=== PATIENT | female | born 1965 | race Caucasian/White ===

== ENCOUNTER 2019-08-03 09:23 | Outpatient (CLI) | payer BC, SELFPAY ==
--- NOTE | ~2019-08-03 | XR_ITS ---
EXAMINATION: XR sinus min 3V DATE: 08/03/2019 09:47 INDICATION: Sinus pressure, mostly on the right. TECHNIQUE: 5 views of the paranasal sinuses were obtained. COMPARISON: None. FINDINGS: There is leftward deviation of the nasal septum. No fracture. The paranasal sinuses are ad ssly clear. IMPRESSION: 1. Leftward deviation of the nasal septum. Reviewed, dictated and finalized at location A.
== END 2019-08-03 09:24 | disposition home or self-care (01) ==
LOC: ANHIMG 09:29
PROVIDERS: PCP Internal Medicine; Visit Provider Internal Medicine
DX: J32.9 Chronic sinusitis, unspecified (principal); J34.2 Deviated nasal septum
CPT/HCPCS: 70220

== ENCOUNTER 2019-11-04 09:26 | Outpatient (CLI) | payer BC, SELFPAY ==
[2019-11-04 09:58] LABS: Alanine Aminotransferase 17 U/L (4-35); Albumin Level 4.6 g/dL (3.5-5.1); Alkaline Phosphatase 87 U/L (38-126); Anion Gap 5 mmol/L (8-16); Aspartate Amino Transferase 32 U/L (14-36); Bilirubin,Total 0.5 mg/dL (0.2-1.3); Blood Urea Nitrogen 17 mg/dL (7-17); Calcium 9.7 mg/dL (8.4-10.2); Carbon Dioxide 30 mmol/L (22-30); Chloride 100 mmol/L (98-107); Cholesterol 230 mg/dL (0-200); Estimated Glomerular Filt Rate > 60; Glucose 91 mg/dL (65-105); HDL Direct 68 mg/dL; Potassium 4.3 mmol/L (3.4-5.0); Sodium 135 mmol/L (137-145); Triglycerides 70 mg/dL (<150)
[2019-11-04 10:09] LABS: LDL Cholesterol Direct 132 mg/dL
[2019-11-04 10:26] LABS: Free T4 Free Thyroxine 0.95 ng/mL (0.78-2.19)
[2019-11-13 08:13] LABS: Insulin Level Total 2.8 uIU/mL (<=19.6)
== END 2019-11-04 09:27 | disposition home or self-care (01) ==
LOC: ANHLAB 09:27
PROVIDERS: PCP Internal Medicine; Visit Provider Internal Medicine
DX: Z00.00 Encounter for general adult medical examination without abnormal findings (principal); Z79.899 Other long term (current) drug therapy
CPT/HCPCS: 36415; 80053; 80061; 83036; 83525; 84439; 84443

== ENCOUNTER 2019-12-13 15:58 | Outpatient (CLI) | payer BC, SELFPAY ==
--- NOTE | ~2019-12-13 | MM_ITS ---
EXAMINATION: MM screening stephanie BI w ricarda HISTORY: Screening mammogram, family history of breast cancer in her sister. TECHNIQUE: Craniocaudal and mediolateral oblique 3-D tomosynthesis images were obtained and synthetic 2-D images were generated. CAD analysis was submitted and interpreted. COMPARISON: 05/12/2017, 05/05/2017, 07/31/2014 BREAST PARENCHYMAL COMPOSITION: The breasts are heterogeneously dense, which may obscure small masses . FINDINGS: Scattered benign-appearing calcifications are present. There is no evidence of suspicious m ass, calcification, or architectural distortion to suggest malignancy in either breast. There has bee n no suspicious interval change. IMPRESSION: 1. No mammographic evidence of malignancy. 2. Recommend routine screening mammography in one year. BI-RADS Category 2: Benign finding(s). Reviewed, dictated and finalized at location A.
== END 2019-12-13 15:59 | disposition home or self-care (01) ==
PROVIDERS: PCP Internal Medicine; Visit Provider Internal Medicine
DX: Z12.31 Encounter for screening mammogram for malignant neoplasm of breast (principal)
CPT/HCPCS: 77063; 77067

== ENCOUNTER 2020-04-19 10:27 | Outpatient (CLI) | payer OTHER, SELFPAY ==
[2020-04-19 11:00] LABS: Anion Gap 4 mmol/L (8-16); Blood Urea Nitrogen 19 mg/dL (7-17); Calcium 9.3 mg/dL (8.4-10.2); Carbon Dioxide 34 mmol/L (22-30); Chloride 101 mmol/L (98-107); Estimated Glomerular Filt Rate > 60; Glucose 90 mg/dL (65-105); Potassium 4.2 mmol/L (3.4-5.0); Sodium 139 mmol/L (137-145)
== END 2020-04-19 10:28 | disposition home or self-care (01) ==
PROVIDERS: Anesthesiology; PCP Internal Medicine; Visit Provider Surgery Plastic and Reconstructive Surgery
DX: R60.9 Edema, unspecified (principal); Z01.818 Encounter for other preprocedural examination
CPT/HCPCS: 36415; 80048

== ENCOUNTER → 2020-04-21 00:29 | Outpatient (CLI) | payer OTHER, SELFPAY ==
[2020-04-21 19:48] LABS: SARS-CoV-2 RNA PCR Negative
== END ==
PROVIDERS: PCP Internal Medicine; Visit Provider Surgery Plastic and Reconstructive Surgery
DX: Z01.812 Encounter for preprocedural laboratory examination (principal); Z20.822 Contact with and (suspected) exposure to COVID-19
CPT/HCPCS: C9803; U0003; U0005

== ENCOUNTER 2020-04-24 00:26 | Day surgery (SDC) | payer OTHER, SELFPAY ==
[2020-04-18 15:44] VITALS: BMI 24.7
[2020-04-24] VITALS (11 sets, daily range): BP systolic 95–128; BP diastolic 60–83; PULSE 57–86; RESP 10–20; TEMP 36.1–36.8; O2SAT 97–100
--- NOTE | 2020-04-24 06:47 | WPDHPUPDATE1 ---
History and Physical Update Update Date/Time: 04/24/20 06:47 History and Physical has been reviewed, including an updated exam of the patient. There are NO changes in the patient's condition. Risks, benefits, and alternatives have been discussed and questions answered. Patient agrees to proceed with procedure.
--- NOTE | 2020-04-24 06:52 | PM.PROC ---
Procedure Note - Detailed Date of procedure: 04/24/20 Pre-op diagnosis: Skin Laxity Localized Adiposity Post-op diagnosis: same Procedure performed: 1. Progressive Tension Abdominoplasty 2. Suction Lipectomy Abdomen Description of procedure: She is here today for abdominoplasty / suction lipectomy. Previously and again today the risks, benefits, alternatives were discussed in extensive detail. I wanted her to be very realistic about the risks involved as well as expectations. We discussed aftercare and what to monitor for. I was very upfront about the risks of wound breakdown leading to loss of skin, open wounds, and need for additional procedures with permanent abdominal deformity. We discussed DVT/PE risks and management. Made sure answered all of her questions to her satisfaction today and consent was obtained. She was marked in the preoperative holding area with their verification. The patient was taken to the operating room placed supine on the operating table. Anesthesia was provided by anesthesiology. A lucas catheter was started. She was prepped and draped in a standard sterile fashion. A surgical time-out was taken. I placed the patient in a flexed position to verify the upper and lower markings would reach. I then placed her supine. A thorough abdominal examination was completed. Stab incisions were made and used tumescent solution. Suction lipectomy was completed of the abdomen based on S.A.F.E. technique using a 4mm basket cannula in multiple planes / passes to final results based on preoperative planning and rolling pinch test. She was turned in the lateral decubitus position on each side to verify contour / complete suction. A 10 blade was used to make the upper incision. I continued dissection down to the level of fascia. Elevated just what was necessary for repair of the diastasis and discontinuous undermining otherwise. I then again flexed the bed to verify the upper skin flap would reach the lower markings without tension. Once verified I placed her supine once again and a 10 blade used to make the lower incision. I elevated up to level the umbilicus and left the umbilicus intact on a well-vascularized stalk. The intervening tissue was removed. A 2 mm blunt cannula and Exparel which was mixed 20 cc in 100 cc for a total volume of 120 cc I injected deep to the fascia bilaterally as well as along the incision lines. I plicated the diastasis recti using 0 PDO stratafix barbed suture. This was in 2 separate layers using 2 separate sutures as well. I repaired around the umbilicus leaving plenty of room for well-vascularized stalk of the umbilicus with 2-0 PDS. The patient was flexed and starting from superior to inferior began plication using 2-0 Vicryl to obliterate all space in a standard progressive tension fashion. At the umbilicus I marked out the location of the skin and inset this with 3-0 Monocryl and 4-0 nylon. I continued the remainder of the plication using 2-0 Vicryl until I reached my lower planned scar line. I trimmed any excess skin of the upper flap making sure this was a tension-free closure. I then approximated using a 3 point suture with 2-0 Vicryl followed by 3-0 stratafix ,running subcuticular 4-0 Monocryl, and tissue glue. Fluffs and an abdominal binder were placed. The patient was transferred to the bed in a flexed position. Awoken and taken to the PACU without difficulty. All instrument and sponge counts were correct at the end of the case. Anesthesia: GETA Surgeon: Ha Cary MD Estimated blood loss (mL): 30 Drains: No Packing: No Pathology: none sent Complications: No immediate complications Condition: stable Disposition: PACU Findings: Suction volume 800cc. Tissue removed 1585 grams
[2020-04-24 07:18] LABS: Urine Cotinine NEGATIVE
[2020-04-24] MEDS: LACTATED RINGERS 1,000 ML 30 ML IV CONT ×2 (07:31→12:30)
--- NOTE | 2020-04-24 08:17 | WPDANESEPPF ---
Anes - Initial Pre Proc Eval Procedure: Operation Date: 04/24/20 08:30 Proposed Procedures p Abdominoplasty - Ha Cary MD s Liposuction Abdomen - Ha Cary MD Date/Time: 04/24/20 08:17 Surgeon: Ha Cary MD Pre Op Diagnosis: Skin Laxity Patient Data Age: 54 Gender: F Height: 5 ft 2 in Weight: 59.02 kg Last Vital Signs Temp 97.3 F L 04/24/20 07:55 Pulse 86 04/24/20 07:55 Resp 20 04/24/20 07:55 BP 116/71 04/24/20 07:55 Pulse Ox 100 04/24/20 07:55 Allergies Allergy/AdvReac Type Severity Reaction Status Date / Time No Known Allergies Allergy Mild Verified 04/24/20 07:54 Home Medications Medication Instructions Recorded Confirmed Type triamterene 75 1 tablet PO DAILY #90 tablet 10/20/19 04/24/20 Rx mg-hydrochlorothiazide 50 mg tablet Laboratory Tests 04/24/20 06:56 Cotinine Negative Patient hx anesthesia problems: none Family hx anesthesia problems: none PMFSH Past Medical History Medical History Anxiety BMI 26.0-26.9,adult Cellulitis of ankle Depression DJD (degenerative joint disease) Facial rash Follow up Follow up Heart palpitations Hx of abnormal mammogram Hyperlipidemia Hypoglycemia 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 Sinus pain Vertigo Surgical History Surgical History History of adenoidectomy History of cholecystectomy 11/04/2017 History of tonsillectomy Hx of section 1994 Family History Family History Other Diabetes mellitus Hypertension Social History Social History Smoking status: Never smoker Alcohol intake: current Substance use: never Anes - Eval Final PreProcedure Day of Procedure 04/24/20 08:17 Patient weight: normal Heart: regular rate and rhythm Lungs: clear to auscultation Airway: Mallampati scale class II Neurological: alert and oriented Last oral intake: >/= 8 hours ASA classification: II Emergent: no Anesthetic plan: proceed Anesthesia type and monitoring: general ETT and standard monitoring Informed Consent: The patient's anesthetic plan and its attendant risks and benefits were discussed with the patient/family/POA. Questions were solicited and answers provided to the satisfaction of the patient/family/POA.
[2020-04-24] MEDS: SCOPOLAMINE 1.5 MG PATCH TRANSDERM (08:30)
[2020-04-24] MEDS: ceFAZolin 2 GM/D5W 50 ML 2 GM/50 ML BAG IVPB (08:37)
[2020-04-24] MEDS: LACTATED RINGERS 1,000 ML 125 ML IV CONT (14:37)
[2020-04-24] MEDS: oxyCODONE/ACETAMINOPHEN (*CRX) 5-325 MG TABLET PO ×2 (16:13→22:53)
[2020-04-24] MEDS: carisoprodoL (*CRX) 350 MG TABLET PO (18:20)
[2020-04-24] MEDS: ENOXAPARIN 40 MG/0.4 ML SYRINGE SUB-Q (19:25)
--- NOTE | 2020-04-24 19:40 | PC.NURSE ---
1402 Pt admitted to room 283 from PACU after surgery today with Dr. Cary. Pt awake and alert; VSS and assessment WNL. Pt's present; couple oriented to room, staffing and procedures. Pt appears to be in stable condition.
--- NOTE | 2020-04-24 20:01 | PC.NURSE ---
1715 Pt has puncture wound on R and L sides lower abdomen. site on her R when binder lifted had moderate amount very bloody drainage flowing freely; stopped when pressure applied, and when pressure lifted flowed freely; gauze pressure dressing applied with binder covering. site on pt's left side had minimal drainage.
[2020-04-24] MEDS: DOCUSATE SODIUM 100 MG CAPSULE PO (22:53)
--- NOTE | 2020-04-24 23:00 | PC.NURSE ---
Druidly would not let RN chart at this time - gave error stating there was something that needed to be filed still, and would not let me open these interventions. IV line - WNL Lane - out at 2300 SCD/CONNIE - continued. All systems WNL except: - GI: no flatuence - Integ: incision on abdomen - serosanguious on sides where wounds had been irrgated. VS: BP - 102/68 Pulse - 71 temp - 98.4
[2020-04-25] MEDS: carisoprodoL (*CRX) 350 MG TABLET PO ×2 (00:45→05:30)
[2020-04-25] MEDS: oxyCODONE/ACETAMINOPHEN (*CRX) 5-325 MG TABLET PO (05:29)
[2020-04-25 05:40] VITALS: BP 102/68; PULSE 71; RESP 17; TEMP 36.7
--- NOTE | 2020-04-25 07:32 | WPDPN ---
Progress Note: A&P Assessment and Plan (1) Encounter for cosmetic surgery: Code(s): Z41.1 - Encounter for cosmetic surgery Status: Acute Assessment and Plan: She is doing very well after progressive tension abdominoplasty and suction lipectomy of the abdomen. Will discharge home. Follow up in 1 week. Today waited 20 minutes conversation with her and her about the care. What monitor for. Answered all of their questions. Review of Systems Review of Systems: All systems reviewed & are unremarkable except as noted in HPI and below Exam Narrative: Exam Narrative: Abdomen is healing well. There is no signs of infection. No hematoma. No seroma. Good color and capillary refill. No calf tenderness. Negative Homans. Objective Data Vital Signs Vital Signs: Vital Signs - 24 hr 04/24/20 07:55 04/24/20 12:32 04/24/20 12:45 Temperature 36.3 C L 36.2 C L Pulse Rate 86 74 66 Respiratory Rate 20 10 L 11 L Blood Pressure 116/71 128/76 116/83 Pulse Oximetry 100 100 100 04/24/20 13:00 04/24/20 13:15 04/24/20 13:30 Temperature Pulse Rate 60 60 64 Respiratory Rate 10 L 10 L 10 L Blood Pressure 126/79 114/66 121/71 Pulse Oximetry 100 97 99 04/24/20 13:45 04/24/20 14:00 04/24/20 16:10 Temperature 36.4 C 36.1 C L Pulse Rate 57 L 58 L 74 Respiratory Rate 12 18 16 Blood Pressure 119/68 115/73 96/61 L Pulse Oximetry 98 99 04/24/20 19:00 04/24/20 23:00 04/25/20 05:40 Temperature 36.8 C 36.7 C 36.7 C Pulse Rate 65 68 71 Respiratory Rate 15 15 17 Blood Pressure 95/60 L 109/70 102/68 Pulse Oximetry Intake/Output Intake/Output: Intake & Output 04/22/20 04/23/20 04/24/20 04/25/20 23:59 23:59 23:59 23:59 Intake Total 1200 700 Output Total 400 1400 Balance 800 -700 Meds/Results Medications: Active Medications Generic Name Dose Route Start Last Admin Trade Name Freq PRN Reason Stop Dose Admin Carisoprodol 350 mg 04/24/20 18:00 04/25/20 05:30 Carisoprodol (*Crx) 350 Mg Tablet PO 350 mg Q6HR JIGAR Administration Docusate Sodium 100 mg 04/24/20 21:00 04/24/20 22:53 Docusate Sodium 100 Mg Capsule PO 100 mg Q12HR JIGAR Administration Enoxaparin Sodium 40 mg 04/24/20 19:00 04/24/20 19:25 Enoxaparin 40 Mg/0.4 Ml Syringe SUB-Q 40 mg Q24H JIGAR Administration Lactated Ringer's 1,000 mls @ 125 mls/hr 04/24/20 12:35 04/24/20 14:37 Lr - Lactated Ringers Iv IV CONT 125 mls/hr .Q8H JIGAR Administration Morphine Sulfate 2 mg 04/24/20 12:35 Morphine Sulfate (*Crx) 2 Mg/Ml Inj IV PUSH Q2H PRN Pain Ondansetron HCl 4 mg 04/24/20 12:35 Ondansetron Inj 4 Mg/2 Ml Vial IV PUSH Q6H PRN Nausea Oxycodone/Acetaminophen 1 - 2 tablet 04/24/20 12:35 04/25/20 05:29 Oxycodone/Acetaminophen (*Crx) 5-325 Mg Tablet PO 1 tablet Q6H PRN Administration Pain Triamterene/Hydrochlorothiazide 2 tab 04/25/20 09:00 Triamterene 37.5 Mg/Hctz 25 Mg (Maxzide) Tablet PO 05/25/20 09:01 [facility]ILY [facility] Subjective Date/time seen: 04/25/20 07:32 She states she is doing well. No complaints. No fevers or chills. No nausea vomiting. No shortness of breath. No chest pain. She has ambulated. Tolerating p.o..
--- NOTE | 2020-04-25 07:34 | WPDANESPN ---
Anes - Prog Note Post-Op Date/Time: 04/25/20 07:34 Cardiovascular status: normal Respiratory status: normal Airway patency: baseline Mental status: baseline Post-Op hydration status: normal Vital Signs: Last Vital Signs Temp 36.7 C 04/25/20 05:40 Pulse 71 04/25/20 05:40 Resp 17 04/25/20 05:40 BP 102/68 04/25/20 05:40 Pulse Ox 99 04/24/20 14:00 Pain Score (VAS): 03/28 I/O: Intake & Output 04/24/20 04/24/20 04/25/20 15:59 23:59 07:59 Intake Total 600 600 700 Output Total 799 259 1826 Balance 400 400 -700 Post-procedural complaints: none Patient Feedback: Patient satisfied with anesthetic care.
--- NOTE | 2020-04-25 07:38 | P.DS_ITS ---
DS: Admitting Diagnosis Admitting Diagnosis Admitting Diagnosis: Skin laxity and localized adiposity DS: Discharge Diagnosis Discharge Diagnosis (1) Encounter for cosmetic surgery: Code(s): Z41.1 - Encounter for cosmetic surgery Status: Acute DS: Summary Hospital Course Hospital Course: Patient underwent progressive tension abdominoplasty and suction lipectomy uneventfully. Postoperatively she has done very well. Will discharge home. See back in 1 week. Time Spent with Patient Time attestation: Total time spent providing and/or coordinating discharge services: 20 minutes Exam Narrative: Exam Narrative: Abdomen is healing well. There is no signs of infection. No hematoma. No seroma. Good color and capillary refill. No calf tenderness. Negative Homans. Discharge Plan Discharge Patient Disposition: Home, Self-Care Discharge Instructions: POST OPERATIVE DISCHARGE INSTRUCTIONS HA CARY M.D. [facility] [address] [place] [address] * No driving for 24 hours after anesthesia and while you are taking pain medication. * Take all prescribed medication as directed * Diet as tolerated. * No lifting or activity that raises blood pressure for 48 hours. * Regular walking / ambulation. * No showering until directed to. Once you shower do not take pain medication before showering as the combination of medication and heat may cause you to feel dizzy or pass out. * No pools or tubs for 2 weeks. * Call with any questions or concerns. * Dressing Care: May shower. Continue abdominal binder 23 hours per day. If you have any questions or concerns, please call the office . If it is after hours you will be directed to the financial operations clerk exchange. Shortness of breath, chest pain, or other medical emergency dial 911 / proceed to the Emergency Room. Stand Alone Forms: General Discharge Instructions Follow-up/Referrals: Ha Cary MD [Physician] - 1 Week Discharge Medications: Continued triamterene-hydrochlorothiazid 75-50 mg tablet 1 tablet PO DAILY Qty: 90 RF: 3
[2020-04-25 08:25] VITALS: BP 92/53; PULSE 90; RESP 18; TEMP 37.4; O2SAT 96
== END 2020-04-25 10:10 | disposition home or self-care (01) ==
LOC: ANHSURGERY 06:51 → ANHOB2 14:11
PROVIDERS: PCP Internal Medicine; Visit Provider Surgery Plastic and Reconstructive Surgery
PROC: (CPT 15830; principal; 2020-04-24 08:30)
PROC: (CPT 15877; 2020-04-24 08:30)
DX: Z41.1 Encounter for cosmetic surgery (principal); L57.4 Cutis laxa senilis; E65 Localized adiposity; Z79.899 Other long term (current) drug therapy
CPT/HCPCS: 15830; 15847; 15877; 80307; 99199; A9270; C9290; J0171; J0330; J0690; J1100; J1170; J1650; J2250; J2405; J2704; J3010; J7120

== ENCOUNTER → 2020-08-31 06:58 | Outpatient (CLI) | payer BC, SELFPAY ==
[2020-08-31 19:11] LABS: SARS-CoV-2 RNA PCR Negative
== END ==
PROVIDERS: PCP Internal Medicine; Visit Provider Internal Medicine
DX: R68.89 Other general symptoms and signs (principal); Z20.822 Contact with and (suspected) exposure to COVID-19
CPT/HCPCS: C9803; U0003; U0005

== ENCOUNTER 2020-12-19 14:49 | Outpatient (CLI) | payer BC, SELFPAY ==
--- NOTE | ~2020-12-19 | XR_ITS ---
XR lumbar spine 2-3V DATE: 12/19/2020 15:10 INDICATION: Low back pain and bilateral hip pain. No injury. TECHNIQUE: AP, lateral and coned lateral lumbosacral views COMPARISON: None FINDINGS: Prominent spurring at T10-11. There is mild degenerative spurring of the lumbar spine, primarily at L3-4. Lumbar and lumbosacral in terspaces are well preserved. No fracture or bone destruction or spondylolisthesis. The lumbar pedicles are intact. The sacroiliac joints appear normal. IMPRESSION: Minimal spurring of the lumbar spine Reviewed, dictated and finalized at location A.
--- NOTE | ~2020-12-19 | XR_ITS ---
XR hip BI 2V w AP pelvis DATE: 12/19/2020 15:10 INDICATION: Bilateral hip pain TECHNIQUE: AP pelvis. AP and lateral views of each hip. COMPARISON: None FINDINGS: No pelvic fracture or bone destruction. The pubic symphysis and sacroiliac joints are intac t. No fracture, dislocation, avascular necrosis or bone destruction of either hip. Hip joint spaces a re symmetric and relatively preserved. IMPRESSION: No significant abnormality Reviewed, dictated and finalized at location A. IMPRESSION: No significant abnormality
== END 2020-12-19 14:50 | disposition home or self-care (01) ==
PROVIDERS: PCP Internal Medicine; Visit Provider Internal Medicine
DX: M25.551 Pain in right hip (principal); M25.552 Pain in left hip; M54.9 Dorsalgia, unspecified
CPT/HCPCS: 72100; 73521

== ENCOUNTER → 2021-04-02 09:25 | Outpatient (CLI) | payer BC, SELFPAY ==
[2021-04-02 16:44] LABS: SARS-CoV-2 RNA PCR Positive
== END ==
PROVIDERS: PCP Internal Medicine; Visit Provider Internal Medicine
DX: U07.1 COVID-19 (principal)
CPT/HCPCS: C9803; U0003; U0005

== ENCOUNTER 2021-04-08 08:30 | Outpatient (CLI) | payer BC, SELFPAY ==
--- NOTE | ~2021-04-08 | CT_ITS ---
EXAMINATION: CTA chest PE protocol EXAM DATE: 04/08/2021 09:51 INDICATION: Chest pain, shortness of breath. Personal history of COVID-19 TECHNIQUE: Spiral CTA of the chest (pulmonary arteries) was performed with 100 cc Omnipaque 350 intr avenous contrast injection. Images were acquired during the pulmonary arterial phase. Coronal maxi mum intensity projection 3D-reconstructions were created by the technologist on dedicated workstation . Axial, coronal and sagittal reformatted images were reviewed. The dose-length product (DLP) for t his examination was 177.28 mGy-cm. The exposure was tailored according to patient size (auto mA exp osure control), and iterative reconstruction (ASIR) was used as additional dose reduction technique. There is no prior study for comparison. FINDINGS: Pulmonary arteries are well opacified and without intraluminal filling defects. No thora cic aortic dissection. The lungs are clear. There are no pleural or pericardial effusions. Trach eobronchial tree is patent. There is no mediastinal, hilar or axillary lymphadenopathy. There is no pneumothorax. Heart normal in size. No evidence of coronary arterial calcification. Upper abd omen is unremarkable. There is thoracic spondylosis without osteoblastic or osteolytic lesions iden tified. IMPRESSION: 1. No pulmonary emboli or acute cardiopulmonary findings. Reviewed, dictated and finalized at location A. T SPA DESK
[2021-04-08 09:21] LABS: INR 1.1; Prothrombin Time 13.9 Seconds (11.1-14.7)
[2021-04-08 09:35] LABS: D Dimer 0.27 ug/mL (<0.48)
== END 2021-04-08 08:31 | disposition home or self-care (01) ==
PROVIDERS: PCP Internal Medicine; Visit Provider Internal Medicine
DX: R07.89 Other chest pain (principal); R06.02 Shortness of breath; Z86.16 Personal history of COVID-19
CPT/HCPCS: 36415; 71275; 85380; 85610; Q9967

== ENCOUNTER 2021-05-22 14:53 | Outpatient (CLI) | payer BC, SELFPAY ==
--- NOTE | ~2021-05-22 | MM_ITS ---
EXAMINATION: MM screening stephanie BI w ricarda HISTORY: Screening TECHNIQUE: Craniocaudal and mediolateral oblique 3-D tomosynthesis images were obtained and synthetic 2-D images were generated. CAD analysis was submitted and interpreted. COMPARISON: Comparison to multiple prior studies sequentially, with oldest reviewed study dated 07/31. BREAST PARENCHYMAL COMPOSITION: The breasts are heterogeneously dense, which may obscure small masses . FINDINGS: There is no evidence of suspicious mass, calcification, or architectural distortion to sugg est malignancy in either breast. There has been no suspicious interval change. IMPRESSION: 1. No mammographic evidence of malignancy. 2. Recommend routine screening mammography in one year. BI-RADS Category 1: Negative. Reviewed, dictated and finalized at location A.
== END 2021-05-22 14:54 | disposition home or self-care (01) ==
LOC: ANHIMG 14:55
PROVIDERS: PCP Internal Medicine; Visit Provider Obstetrics & Gynecology
DX: Z12.31 Encounter for screening mammogram for malignant neoplasm of breast (principal)
CPT/HCPCS: 77063; 77067

== ENCOUNTER 2021-06-26 09:30 | Outpatient (CLI) | payer BC, SELFPAY ==
--- NOTE | ~2021-06-26 | CT_ITS ---
EXAMINATION: CT brain wo/w con DATE: 06/26/2021 10:03 INDICATION: Unspecified visual disturbance TECHNIQUE: Computed tomography (CT) of the head was performed without and subsequently with 100 CC Om nipaque 300 intravenous contrast. The mA was adjusted according to patient size. Iterative reconstruc tion technique was employed. Exam dose: 1210.67 mGy-cm total exam DLP. COMPARISON: None FINDINGS: No intracranial mass lesion or hemorrhage or cerebrovascular accident is detected. No midli ne shift or mass effect. Normal ventricular size. No subdural or epidural hematoma is detected. The mastoid air cells and included paranasal sinuses are normally developed and aerated. No fracture or bone destruction of the cranial vault. IMPRESSION: No significant abnormality Reviewed, dictated and finalized at Location A. Reviewed, dictated and finalized at location B. IMPRESSION: No significant abnormality
== END 2021-06-26 09:31 | disposition home or self-care (01) ==
PROVIDERS: PCP Internal Medicine; Visit Provider Internal Medicine
DX: H53.9 Unspecified visual disturbance (principal)
CPT/HCPCS: 70470; Q9967

== ENCOUNTER 2021-07-11 18:40 | Emergency (ER) | payer BC, SELFPAY ==
--- NOTE | ~2021-07-11 | XR_ITS ---
XR wrist LT 2V 07/11/2021 19:03 Indication: Left wrist pain with fall Procedure: 2 views left wrist Comparison: No prior studies for comparison. Findings: There is a nondisplaced fracture of the distal radial metaphysis with possible intra-articu lar extension. There are degenerative changes of the triscaphe joint. Normal mineralization. No focal soft tissue abnormality. No foreign bodies. Impression: 1: Nondisplaced fracture of the distal radial metaphysis with possible intra-articular extension. Reviewed, dictated and finalized at location A. Impression: 1: Nondisplaced fracture of the distal radial metaphysis with possible intra-ar ticular extension.
[2021-07-11 18:48] VITALS: BP 138/75; PULSE 64; RESP 18; TEMP 36.1; O2SAT 98
[2021-07-11] MEDS: HYDROcodone/acetaminophen (*CRX) 5-325 MG TABLET 1 TAB PO (19:41)
--- NOTE | 2021-07-11 19:42 | ED.GENADULT ---
HPI - General Adult General Chief complaint: Extremity Injury, Upper Stated complaint: fell off ladder, left wrist pain Time Seen by Provider: 07/11/21 19:20 History of Present Illness HPI narrative: Patient is a 55-year-old female who presents ER with left wrist pain. Patient was on a ladder 2 steps up when she fell off sideways catching herself with her left arm. She has pain at the wrist radiating into the forearm. No numbness or tingling. She did not strike her head or lose consciousness. Denies additional injury. Related Data Home Medications Medication Instructions Recorded Confirmed loratadine 5 mg-pseudoephedrine ER 1 tablet PO Q12H 04/08/21 06/27/21 120 mg tablet,extended release,12hr (Claritin-D 12 Hour) Allergies Allergy/AdvReac Type Severity Reaction Status Date / Time No Known Allergies Allergy Mild Verified 07/11/21 19:42 Review of Systems Review of Systems: All systems reviewed & are unremarkable except as noted in HPI and below Constitutional: Constitutional: Denies chills and Denies fever(s) Musculoskeletal: Musculoskeletal: Reports arthralgias and Reports joint swelling Neurologic: Denies syncope, Denies focal weakness and Denies numbness PMFSH Past Medical History Medical History (Updated 07/11/21 @ 19:52 by Loy Guillory MD) Abnormal mammogram Anxiety BMI 26.0-26.9,adult Breast cancer screening Cellulitis of ankle Cellulitis of ankle Cervical radicular pain Chest tightness Colon cancer screening Depression DJD (degenerative joint disease) Edema of extremities Exposure to COVID-19 virus Facial rash FHx: breast cancer Follow up Follow up Heart palpitations Hx of abnormal mammogram Hyperlipidemia Hypoglycemia Laceration with foreign body, right ankle, initial encounter Left ear pain 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 HEAD: Normocephalic, atraumatic. HEART: Regular rate and rhythm. Normal peripheral pulses. EXTREMITIES: Swelling over the left wrist at the anatomic snuffbox and tender around the wrist as well. No tenderness or deformity at the elbow with normal range of motion. Limited range of motion left wrist due to pain and swelling. No swelling or deformity of the fingers. SKIN: Warm, dry, no rash. NEURO: No focal deficits. Alert and oriented x3. PSYCH: Normal mood and affect. Course Course Emergency Course: Discussed case with Dr. Jeong who is on-call. Patient be placed in volar splint. Will refer to clinic. [facility] for pain. Vital Signs Vital signs: Vital Signs Temperature 97.0 F L 07/11/21 18:48 Pulse Rate 64 07/11/21 18:48 Respiratory Rate 18 07/11/21 18:48 Blood Pressure 138/75 07/11/21 18:48 Pulse Oximetry 98 07/11/21 18:48 Oxygen Delivery Room Air 07/11/21 18:48 Temperature 97.0 F L 07/11/21 18:48 Pulse Rate 64 07/11/21 18:48 Respiratory Rate 18 07/11/21 18:48 Blood Pressure 138/75 07/11/21 18:48 Pulse Oximetry 98 07/11/21 18:48 Oxygen Delivery Room Air 07/11/21 18:48 Procedures Orthopedic Splinting/Casting Injury #1: Splinting/Casting Date: 07/11/21 Side: left Upper Extremity Injury Location: wrist Upper Extremity Immobilizer: volar splint Splint: customized in ED Pre-Procedure N
[2021-07-11 20:15] VITALS: BP 129/85; PULSE 72; RESP 20; O2SAT 96
== END 2021-07-11 20:20 | disposition home or self-care (01) ==
PROVIDERS: Emergency Provider Emergency Medicine; PCP Internal Medicine
DX: S59.292A Other physeal fracture of lower end of radius, left arm, initial encounter for closed fracture (principal); E78.5 Hyperlipidemia, unspecified; Z86.16 Personal history of COVID-19; E55.9 Vitamin D deficiency, unspecified; W11.XXXA Fall on and from ladder, initial encounter
CPT/HCPCS: 29125; 73100; 99284; A9270

== ENCOUNTER 2021-07-12 12:15 | Outpatient (CLI) | payer BC, SELFPAY ==
--- NOTE | ~2021-07-12 | CT_ITS ---
EXAMINATION: CT wrist LT wo con DATE: 07/12/2021 12:41 INDICATION: Left wrist fracture TECHNIQUE: High resolution computed tomography (CT) of the left wrist was performed without intraveno us contrast. Additional sagittal and coronal reconstructions were performed. Automated exposure contr ol and iterative reconstruction technique were employed. The dose-length product was 303.44 mGy-cm. COMPARISON: Radiographs dated 07/11/2021 FINDINGS: Comminuted intra-articular fracture of the distal left radius. There is mild separation of the fragme nts resulting in a 2.5 mm wide lucent fracture gap extending obliquely across the lunate fossa as wel l as the sigmoid notch articular surface of the distal radioulnar joint. No incongruity along the dis onelia articular surface but 2-3 mm step-off at the articular surface at the sigmoid notch. No other fra ctures identified. 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 Small wrist joint effusio n. Mild soft tissue swelling about the wrist and carpus. IMPRESSION: 1. Comminuted intra-articular fracture of the distal left radius with minimal displacement resulting in small fracture gaps and incongruity at the articular surfaces of the radiocarpal and distal radiou lnar joints as detailed above. Reviewed, dictated and finalized at location B. IMPRESSION: 1. Comminuted intra-articular fracture of the distal left radius with minimal d isplacement resulting in small fracture gaps and incongruity at the articular s urfaces of the radiocarpal and distal radioulnar joints as detailed above.
== END 2021-07-12 12:16 | disposition home or self-care (01) ==
PROVIDERS: PCP Internal Medicine; Visit Provider Orthopaedic Surgery
DX: S52.502A Unspecified fracture of the lower end of left radius, initial encounter for closed fracture (principal)
CPT/HCPCS: 73200

== ENCOUNTER 2021-09-18 10:56 | Outpatient (CLI) | payer BC, SELFPAY ==
[2021-09-18 11:58] LABS: Rheumatoid Factor < 12.0 IU/ML (<12)
[2021-09-18 12:05] LABS: CRP < 0.5 mg/dL (<1.0); Creatine Kinase 72 U/L (30-135)
[2021-09-18 12:22] LABS: Erythrocyte Sedimentation Rate 1 mm/hr (0-20)
[2021-09-23 07:27] LABS: Aldolase 3.3 U/L (<=8.1)
[2021-09-23 21:56] LABS: Anti Cyclic Citrullinated Pept <16 Units (<20)
== END 2021-09-18 10:57 | disposition home or self-care (01) ==
LOC: ANHLAB 11:00
PROVIDERS: PCP Internal Medicine; Visit Provider Internal Medicine
DX: M25.50 Pain in unspecified joint (principal); G89.29 Other chronic pain; Z79.899 Other long term (current) drug therapy
CPT/HCPCS: 36415; 82085; 82550; 85652; 86140; 86200; 86430

== ENCOUNTER 2022-01-15 15:13 | Outpatient (CLI) | payer BC, SELFPAY ==
--- NOTE | ~2022-01-15 | XR_ITS ---
EXAM: XR foot LT min 3V, XR foot RT min 3V DATE: 01/15/2022 16:09 HISTORY: PLANTAR PAIN TO LEFT AND RIGHT FEET X 1 MONTH, NO INJURY . COMPARISON: None available. FINDINGS: Normal mineralization. No fracture or dislocation. No lytic or blastic lesion. Joint space s are maintained. Bilateral plantar enthesopathy. Mild bilateral pes planus No erosion or periosteal change. Soft tissues within normal limits. IMPRESSION: No acute osseous finding in the feet. Reviewed, dictated and finalized at location K. PER DRIVER IMPRESSION: No acute osseous finding in the feet.
--- NOTE | ~2022-01-15 | XR_ITS ---
XR sacroiliac joints min 3V DATE: 01/15/2022 16:11 INDICATION: Sacroiliitis TECHNIQUE: AP and bilateral oblique views of sacroiliac joints COMPARISON: 12/19/2020 AP pelvis and bilateral hips FINDINGS: The pubic symphysis and sacroiliac joints are intact. No erosive change or ankylosis at the sacroiliac joints. Hip joint spaces are symmetric and well preserved. IMPRESSION: Negative Reviewed, dictated and finalized at Location A. Reviewed, dictated and finalized at location A. R VEHICLE EXAMINER IMPRESSION: Negative
== END 2022-01-15 15:14 | disposition home or self-care (01) ==
LOC: ANHIMG 15:21
PROVIDERS: PCP Internal Medicine; Visit Provider Internal Medicine
DX: M46.1 Sacroiliitis, not elsewhere classified (principal)
CPT/HCPCS: 72202; 73630

== ENCOUNTER 2022-04-18 09:48 | Outpatient (CLI) | payer BC, SELFPAY ==
[2022-04-18 10:38] LABS: Strep Group A RT-PCR NOT DETECTED (Negative)
== END 2022-04-18 09:49 | disposition home or self-care (01) ==
LOC: ANHLAB 09:49
PROVIDERS: PCP Internal Medicine; Visit Provider Internal Medicine
DX: J02.9 Acute pharyngitis, unspecified (principal)
CPT/HCPCS: 87651

== ENCOUNTER 2022-07-19 08:31 | Outpatient (CLI) | payer BC, SELFPAY ==
[2022-07-19 09:07] LABS: Basophils Percent Auto 0.2 % (0.2-1.2); Eosinophils Absolute Auto 0.1 K/mm3 (0-0.3); Eosinophils Percent Auto 1.3 % (0-4.4); Hematocrit 42.9 % (37.0-47.0); Hemoglobin 14.4 g/dL (12.0-15.0); Immature Granulocyte Absolute 0.01 K/mm3 (0.00-0.031); Immature Granulocyte Percent A 0.2 % (0-0.5); Lymphocytes Absolute Auto 2.54 K/mm3 (0.9-3.2); Lymphocytes Percent Auto 42.3 % (18.3-44.2); Mean Corpuscular HGB Conc 33.6 g/dl (32-36); Mean Corpuscular Hemoglobin 32.4 pg (26-34); Mean Corpuscular Volume 96.4 fl (80-100); Mean Platelet Volume 9.2 fl (7.4-10.4); Monocytes Absolute Auto 0.5 K/mm3 (0.1-0.6); Monocytes Percent Auto 7.7 % (2.6-8.5); Neutrophils Absolute Auto 2.9 K/mm3 (1.3-6.7); Neutrophils Percent Auto 48.3 % (45.5-73.1); Platelet Count Result 260 k/mm3 (150-375); Red Blood Count 4.45 M/mm3 (4.2-5.4); Red Cell Distribution Width 11.4 % (11.5-14.5)
[2022-07-19 09:10] LABS: Alanine Aminotransferase 23 U/L (6-35); Albumin Level 4.7 g/dL (3.5-5.1); Alkaline Phosphatase 102 U/L (38-126); Anion Gap 7 mmol/L (8-16); Aspartate Amino Transferase 31 U/L (14-36); Bilirubin,Total 0.6 mg/dL (0.2-1.3); Blood Urea Nitrogen 17 mg/dL (7-17); Calcium 9.3 mg/dL (8.4-10.2); Carbon Dioxide 31 mmol/L (22-30); Chloride 99 mmol/L (98-107); Cholesterol 240 mg/dL (0-200); Estimated Glomerular Filt Rate > 60; Glucose 85 mg/dL (65-110); HDL Direct 64 mg/dL; Potassium 3.9 mmol/L (3.4-5.0); Sodium 137 mmol/L (137-145); Triglycerides 94 mg/dL (<150)
[2022-07-19 09:21] LABS: LDL Cholesterol Direct 144 mg/dL
[2022-07-19 09:38] LABS: Free T4 Free Thyroxine 1.23 ng/mL (0.78-2.19); Vitamin D 25 Hydroxy 55.6 ng/mL
[2022-07-19 10:28] LABS: Hemoglobin A1C 5.2 % (<5.7)
== END 2022-07-19 08:32 | disposition home or self-care (01) ==
PROVIDERS: PCP Internal Medicine; Visit Provider Internal Medicine
DX: Z79.899 Other long term (current) drug therapy (principal); E78.2 Mixed hyperlipidemia; E55.9 Vitamin D deficiency, unspecified
CPT/HCPCS: 36415; 80053; 80061; 82306; 83036; 84439; 84443; 85025

== ENCOUNTER 2023-01-06 12:05 | Outpatient (CLI) | payer BC, SELFPAY ==
--- NOTE | ~2023-01-06 | US_ITS ---
US abdomen limited INDICATION: Epigastric pain PROCEDURE: Realtime right upper abdominal ultrasound. COMPARISON: No prior studies for comparison. FINDINGS: The pancreas is normal without focal mass or pancreatic ductal dilation. Liver echotexture is normal without focal mass or intrahepatic biliary dilatation. There is normal directional flow i n the portal vein. The gallbladder is normal without stones, gallbladder wall thickening or pericholecystic fluid. Comm on bile duct measures 4 mm. No sonographic López's sign. IMPRESSION: 1: Normal limited abdominal ultrasound. Reviewed, dictated and finalized at location L. GRINDER
== END 2023-01-06 12:06 | disposition home or self-care (01) ==
PROVIDERS: PCP Internal Medicine; Visit Provider Internal Medicine
DX: R10.9 Unspecified abdominal pain (principal)
CPT/HCPCS: 76705

== ENCOUNTER 2024-01-20 13:42 | Outpatient (CLI) | payer BC, SELFPAY ==
--- NOTE | ~2024-01-20 | MM_ITS ---
EXAMINATION: MM screening stephanie BI w ricarda HISTORY: Screening TECHNIQUE: Craniocaudal and mediolateral oblique 3-D tomosynthesis images were obtained and synthetic 2-D images were generated. CAD analysis was submitted and interpreted. COMPARISON: Comparison to multiple prior studies sequentially, with oldest reviewed study dated 05/05. BREAST PARENCHYMAL COMPOSITION: Dense: The breasts are heterogeneously dense, which may obscure small masses FINDINGS: Stable benign-appearing right breast calcifications. There is no evidence of suspicious mas s, calcification, or architectural distortion to suggest malignancy in either breast. There has been no suspicious interval change. IMPRESSION: 1. No mammographic evidence of malignancy. 2. Recommend routine screening mammography in one year. BI-RADS Category 2: Benign finding(s). Reviewed, dictated and finalized at location B. COUPLING JOINER
== END 2024-01-20 13:43 | disposition home or self-care (01) ==
LOC: ANHIMG 13:44
PROVIDERS: PCP Internal Medicine; Visit Provider Obstetrics & Gynecology
DX: Z12.31 Encounter for screening mammogram for malignant neoplasm of breast (principal)
CPT/HCPCS: 77063; 77067

== ENCOUNTER 2024-03-18 14:28 | Outpatient (CLI) | payer BC, SELFPAY ==
--- OUTSIDE RECORDS SUMMARY | 2024-03-18 14:39 | XMS_ITS | Clinical Summary ---
Author Organization [facility] Address [address] [place] [id number] Care Team Providers Care Drama Professor Name Role Phone Angelo Sanchez MD Primary Care Provider [phone] Allergies No known active allergies Medications triamterene-hydroC HLOROthiazide (MAXZIDE,DYAZIDE) 75-50 mg per tablet 07/12/2021 Active Active Problems Problem Noted Date Diagnosed Date Closed fracture of left distal radius 07/16/2021 Overview (07/16/2021): Added automatically from request for surgery [id number] Surgical History Surgery Date Site/Laterality Comments TONSILLECTOMY SECTION Medical History Medical History Date Comments Hypertension PONV (postoperative nausea and vomiting) Family History Medical History Relation Name Comments Arthritis Father Cancer Father Hypertension Father Arthritis Mother Cancer Mother Hypertension Mother Cancer Sister Gout Sister Hypertension Sister Relation Name Status Comments Father Mother Sister Social History Tobacco Use Types Packs/Day Years Used Date Smoking Tobacco: Never Smokeless Tobacco: Never AUDIT-C Answer Date Recorded Q1: How often do you have a drink containing alc ohol? 2-4 times a month 07/17/2021 Q2: How many drinks containi ng alcohol do you have on a typical day when you are drinking? 3 or 4 07/17/2021 Frequency of Binge Drinking Not on file 02/2021 Comments No Sex and Gender Information Value Date Recorded Sex Assigned at Not on file Legal Sex Female 8:52 AM CDT Gender Identity Not on file Sexual Orientation Not on file Obstetrics History Last Filed Vital Signs Vital Sign Reading Time Taken Comments Blood Pressure 128/89 07/17/2021 5:50 PM CDT Pulse 75 07/17/2021 6:00 PM CDT Temperature 36.1 ??C (97 ??F) 07/17/2021 4:55 PM CDT Respiratory Rate 18 07/17/2021 6:00 PM CDT Oxygen Saturation 100% 07/17/2021 6:00 PM CDT Inhaled Oxygen Concentration - - Weight 65.8 kg (145 lb) 07/16/2021 10:23 AM CDT Height 157.5 cm (5' 2 ) 07/16/2021 10:23 AM CDT Body Mass Index 26.52 07/16/2021 10:23 AM CDT Plan of Treatment Health Maintenance Due Date Last Done Comments Breast Cancer Screening-Mammogram 1967 Cervical Cancer Screening 1967 Colon Cancer Screening-Colonoscopy 1965 Depression Screening 1967 Hepatitis C Screening 1967 Hepatitis B Screening 11/18/1985 Regular Well Visit/Exam 18-64 11/18/1985 Zoster Vaccine (1 of 2) 11/18/2017 Covid-19 Vaccine (3 - 2023-2 5 season) 2023 10/01/2020, 09/10/2020 Influenza Vaccine (#1) 2023 DTaP/Tdap/Td Vaccine (2 - Td or Tdap) 09/25/2028 09/25/2018 Pneumococcal vaccine <65 Aged Out No longer eligible based on patient's age to complete this topic Medical Devices Implanted Type Area Chief Librarian Branch Or Department Device Identifier Shelf Expiration Date Model / Serial / Lot Monitise Allomatrix Putty 1-4mm Graft 3ml Bone Demineralized Bone Matrix 86dr-0300 - [id number] - [id number] Implanted:Qty: 1 on 07/17/2021 by Carlos Sharma MD at [facility] Left: Radius [employer] 01/15/2023 86DR-0300 / [id number] / [employer] Aptus Trilock 42mmx1.6mm 6 Hole Distal Radius L Left Angle Plate A-4750.55 - [id number] Implanted:Qty: 1 on 07/17/2021 by Carlos Sharma MD at [facility] [place] Left: Radius [employer] A-4750.55 / / [employer] Aptus Trilock 40mmx1.6mm 5 Hole Distal Radius Left Curve Plate A-4750.57 - [id number] Implanted:Qty: 1 on 07/17/2021 by Carlos Sharma MD at [facility] Left: Radius [employer] A-4750.57 / / [employer] Aptus 2.5mm 14mm Lock Cortical Screw Bone A-5750.14 - [id number] Implanted:Qty: 1 on 07/17/2021 by Carlos Sharma MD at [facility] Left: Radius [employer] A-5750.14 / / [employer] 2.5mm 18mm Hexadrive Wrist Cortical Screw Bone A-5700.18/1 - [id number] Implanted:Qty: 1 on 07/17/2021 by Carlos Sharma MD at [facility] Left: Radius [employer] A-5700.18 /1 / / [employer] 2.5mm 20mm Cortical Screw Bone A-5700.20 - [id number] Implanted:Qty: 1 on 07/17/2021 by Carlos Sharma MD at [facility] Left: Radius [employer] A-5700.20 / / [employer] 2.5mm 22mm Screw Bone A-5700.22 - [id number] Implanted:Qty: 1 on 07/17/2021 by Carlos Sharma MD at [facility] Left: Radius [employer] A-5700.22 / / [place] Care Teams Drama Professor Relationship Specialty Start Date End Date Angelo Sanchez MD [address] [facility] [address] [place] [address] PCP - General Internal Medicine 07/12/21
--- OUTSIDE RECORDS SUMMARY | 2024-03-18 14:39 | XMS_ITS | Referral Summary ---
Author Organization [facility] Address [address] [place] [phone] Care Team Providers Care Plate Colorer Name Role Phone Angelo Sacnhez MD Primary Care Provider [phone] Allergies No known active allergies Medications triamterene-hydroC HLOROthiazide (MAXZIDE,DYAZIDE) 75-50 mg per tablet 07/12/2021 Active Active Problems Problem Noted Date Diagnosed Date Closed fracture of left distal radius 07/16/2021 Overview (07/16/2021): Added automatically from request for surgery [id number] Social History Tobacco Use Types Packs/Day Years [...] on file Sexual Orientation Not on file Last Filed Vital Signs Vital Sign Reading [...] 07/16/2021 10:23 AM CDT Plan of Treatment Not on file Medical Devices Implanted Type Area Manganese Wheeler Device Identifier Shelf Expiration Date Model / Serial / Lot [employer] Allomatrix Putty 1-4mm Graft 3ml Bone Demineralized Bone Matrix 86dr-0300 - [id number] - [id number] Implanted:Qty: 1 on 07/17/2021 by Carlos Sharma MD at [facility] Left: [employer] 01/15/2023 86DR-0300 / [id number] / [employer] Aptus Trilock 42mmx1.6mm 6 Hole Distal Radius L Left Angle Plate A-4750.55 - [id number] Implanted:Qty: 1 on 07/17/2021 by Carlos Sharma MD at [facility] Left: Radius [employer] A-4750.55 / / [employer] Aptus Trilock 40mmx1.6mm 5 Hole Distal Radius Left Curve Plate A-4750.57 - [id number] Implanted:Qty: 1 on 07/17/2021 by Carlos Sharma MD at [facility] Left: Radius [employer] A-4750.57 / / [employer] Aptus 2.5mm 14mm Lock Cortical Screw Bone A-5750.14 - [id number] Implanted:Qty: 1 on 07/17/2021 by Carlos Sharma MD at [facility] Left: Radius [employer] A-5750.14 / / [employer] 2.5mm 18mm Hexadrive Wrist Cortical Screw Bone A-5700.18/1 - [id number] Implanted:Qty: 1 on 07/17/2021 by Carlos Sharma MD at [facility] Left: Radius [employer] A-5700.18 /1 / / [employer] 2.5mm 20mm Cortical Screw Bone A-5700.20 - [id number] Implanted:Qty: 1 on 07/17/2021 by Carlos Sharma MD at [facility] Left: Radius [employer] A-5700.20 / / [employer] 2.5mm 22mm Screw Bone A-5700.22 - [id number] Implanted:Qty: 1 on 07/17/2021 by Carlos Sharma MD at [facility] Left: Radius [employer] A-5700.22 / / [place] Care Teams Plate Colorer Relationship Specialty Start Date End Date Angelo Sanchez MD [address] [facility] [address] [place] [address] [place] [id number] PCP - General Internal Medicine 07/12/21
[2024-03-18 15:47] LABS: Add Urine Microscopic? YES; Appearance Urine Cloudy (Clear); Bacteria Urine None Seen /hpf; Bilirubin Urine Negative (Negative); Blood Urine Negative (Negative); Color Urine Yellow (Yellow); Glucose Urine UA Negative (Negative); Ketones Urine Trace mg/dL (Negative); Leukocyte Esterase Ur 2+ LEU/UL (Negative); Nitrate Urine Negative (Negative); Non Pathogenic Casts 0-2; Protein Urine Negative (Negative); RBC Urine 0-2 /hpf (0-2); Specific Grav Ur 1.024 (1.001-1.035); Squamous Epithelial Cell Urine Occasional /hpf (Few); Urobilinogen Urine 0.2 mg/dL (<2.0); WBC Urine 51-100 /hpf (0-3)
[2024-03-18 15:48] LABS: Alanine Aminotransferase 16 U/L (6-35); Albumin Level 4.3 g/dL (3.5-5.1); Alkaline Phosphatase 87 U/L (38-126); Anion Gap 9 mmol/L (4-12); Aspartate Amino Transferase 25 U/L (14-36); Bilirubin,Total 0.3 mg/dL (0.2-1.3); Blood Urea Nitrogen 20 mg/dL (7-17); Calcium 9.4 mg/dL (8.4-10.2); Carbon Dioxide 28 mmol/L (22-30); Chloride 101 mmol/L (98-107); Cholesterol 222 mg/dL (0-200); Estimated Glomerular Filt Rate > 60; Glucose 90 mg/dL (65-110); HDL Direct 64 mg/dL; Potassium 3.7 mmol/L (3.4-5.0); Sodium 138 mmol/L (137-145); Triglycerides 186 mg/dL (<150)
[2024-03-18 15:59] LABS: LDL Cholesterol Direct 120 mg/dL
[2024-03-18 16:06] LABS: Hemoglobin A1C 5.4 % (<5.7)
[2024-03-18 16:19] LABS: Free T4 Free Thyroxine 0.97 ng/dL (0.78-2.19)
== END 2024-03-18 14:29 | disposition home or self-care (01) ==
LOC: ANHLAB 14:30
PROVIDERS: PCP Internal Medicine; Visit Provider Internal Medicine
DX: Z13.29 Encounter for screening for other suspected endocrine disorder (principal); Z79.899 Other long term (current) drug therapy; E16.2 Hypoglycemia, unspecified; E78.5 Hyperlipidemia, unspecified
CPT/HCPCS: 36415; 80053; 80061; 81001; 83036; 84439; 84443; 87086

== ENCOUNTER 2024-03-18 14:30 | Outpatient (CLI) | payer OTHER, SELFPAY ==
[2024-03-18 15:38] LABS: Hematocrit 40.7 % (37.0-47.0); Hemoglobin 13.6 g/dL (12.0-15.0); Mean Corpuscular HGB Conc 33.4 g/dl (32-36); Mean Corpuscular Hemoglobin 33.8 pg (26-34); Mean Corpuscular Volume 101.2 fl (80-100); Mean Platelet Volume 9.5 fl (7.4-10.4); Platelet Count Result 243 k/mm3 (150-375); Red Blood Count 4.02 M/mm3 (4.2-5.4); Red Cell Distribution Width 11.9 % (11.5-14.5); White Blood Count 7.3 K/mm3 (4.5-10.0)
[2024-03-18 16:03] LABS: Iron 79 ug/dL (37-170)
[2024-03-18 16:12] LABS: Prealbumin 23.1 mg/dL (17.6-36.0)
== END 2024-03-18 14:31 | disposition home or self-care (01) ==
LOC: ANHLAB 14:32
PROVIDERS: PCP Internal Medicine; Visit Provider Surgery Plastic and Reconstructive Surgery
DX: R63.4 Abnormal weight loss (principal)
CPT/HCPCS: 36415; 83540; 84134; 84425; 85027